=== PATIENT | female | born 1995 | race Caucasian/White ===

== ENCOUNTER 2019-09-29 21:44 | Day surgery (SDC) | payer OTHER ==
[2019-09-29] MEDS ORDERED: Glucagon,Human Recombinant 1 MG Vial IVPUSH ONE (21:47)
[2019-09-29] MEDS ORDERED: Ondansetron 4 MG/2 ML SDV ONE (21:51)
[2019-09-29] MEDS ORDERED: Ondansetron 4 MG/2 ML SDV IVPUSH ONE (21:52)
--- NOTE | 2019-09-29 21:52 | EDM.PDOC ---
ED HPI GENERAL MEDICAL PROBLEM - General Stated Complaint: FOOD STUCK IN THROAT Time Seen by Provider: 09/29/19 21:47 Source of Information: Reports: Patient - History of Present Illness INITIAL COMMENTS - FREE TEXT/NARRATIVE: History of present illness: 24-year-old female presenting with choking episode. Was eating steak just prior to arrival when she felt she got a piece of the steak caught. At first she was choking and could not breathe, her boyfriend did the Heimlich maneuver and she was able to get it to move out of the airway but into the esophagus and now is able to breathe but still feels it stuck in the esophagus and is now unable to keep down any saliva. No difficulty breathing now. Reports that this happened to her in the past with a piece of pork, however she was able to pass it on her own. She does report she has had some chronic gastric reflux since she was a child. This started about 15 minutes before coming to the emergency department. Review of systems: As per history of present illness and below otherwise all systems reviewed and negative. Past medical history: As per history of present illness and as reviewed below otherwise noncontributory. Surgical history: As per history of present illness and as reviewed below otherwise noncontributory. Removal of cyst on leg Social history: No reported history of drug or alcohol abuse. No tobacco Family history: As per history of present illness and as reviewed below otherwise noncontributory. Physical exam: GEN: mild distress, difficulty swallowing, no difficulty breathing, otherwise well appearing HEENT: Atraumatic, normocephalic, mucous membranes moist, Neck: supple. Lungs: No respiratory distress. No Airway obstruction Heart: RRR Abdomen: Soft, nondistended. Extremities: Atraumatic. Neurovascularly intact. Neuro: Awake, alert, oriented. Neuro Exam nonfocal. Skin: warm, dry, no lesions Diagnostics: covid- NEG, HCG - NEG Therapeutics: Glucagon, Zofran, nitroglycerin, IV fluids, soda MDM: Impression: Esophageal foreign body, food impaction Plan: [] Definitive disposition and diagnosis as appropriate pending reevaluation and review of above. - Related Data Allergies Allergy/AdvReac Type Severity Reaction Status Date / Time No Known Allergies Allergy Verified 09/29/19 23:18 Home Meds: Home Meds . [No Known Home Meds] 09/29/19 [History] ED ROS GENERAL - Review of Systems Review Of Systems: See Below (See HPI) ED EXAM, GENERAL - Physical Exam Exam: See Below (See HPI) Course - Vital Signs Text/Narrative:: Esophageal food bolus/food impaction. Attempted soda and up and down jumping. Unsuccessful. Will attempt glucagon and Zofran. Last Recorded V/S: Last Vital Signs Temp 98.2 F 09/29/19 22:25 Pulse 78 09/30/19 00:45 Resp 18 09/29/19 22:25 BP 118/75 09/30/19 00:45 Pulse Ox 98 09/29/19 22:25 - Orders/Labs/Meds Orders: Active Orders 24 hr Category Date Time Status Patient Status [ADT] Routine ADT 09/30/19 01:16 Active Labs: Laboratory Tests 09/29/19 09/29/19 Range/Units 22:02 22:05 HCG, Qual NEGATIVE (NEG) COVID-19 (ROLANDO) NEGATIVE (NEGATIVE) Meds: Medications Discontinued Medications Generic Name Dose Route Start Last Admin Trade Name Ashish PRN Reason Stop Dose Admin Fentanyl Confirm 09/30/19 01:37 Sublimaze Administered 09/30/19 01:38 Dose 100 mcg .ROUTE .STK-MED ONE Glucagon 1 mg 09/29/19 21:47 09/29/19 21:58 Glucagen IVPUSH 09/29/19 21:48 1 mg ONETIME ONE Administration Sodium Chloride 1,000 mls @ 999 mls/hr 09/30/19 00:04 09/30/19 00:13 Normal Saline IV 09/30/19 01:04 999 mls/hr .Bolus ONE Administration Midazolam HCl Confirm 09/30/19 01:37 Versed 1 Mg/Ml Administered 09/30/19 01:38 Dose 2 mg .ROUTE .STK-MED ONE Nitroglycerin 0.4 mg 09/30/19 00:04 09/30/19 00:13 Nitrostat SL 09/30/19 00:05 0.4 mg ONETIME ONE Administration Nitroglycerin Confirm 09/30/19 00:07 Nitrostat Administered 09/30/19 00:08 Dose 0.4 mg .ROUTE .STK-MED ONE Ondansetron HCl 4 mg 09/29/19 21:52 09/29/19 21:58 Zofran IVPUSH 09/29/19 21:53 4 mg ONETIME ONE Administration Ondansetron HCl Confirm 09/29/19 21:51 Zofran Administered 09/29/19 21:52 Dose 4 mg .ROUTE .STK-MED ONE Propofol Confirm 09/30/19 01:37 Diprivan 20 Ml Administered 09/30/19 01:38 Dose 200 mg .ROUTE .STK-MED ONE - Re-Assessments/Exams Free Text/Narrative Re-Assessment/Exam: 09/29/19 22:13 Assessed the patient. She is feeling slightly better, but does feel that the food bolus is still lodged in the esophagus. She has had less spitting up sputum than previous of only. She has received the glucagon. We will continue to monitor. 09/30/19 00:05 Patient still feels that the food is stuck, however feels that it is further down in the esophagus that when she arrived. Will attempt nitroglycerin and additional cola and jumping on heels. 09/30/19 00:21 Still unable to pass the food bolus impaction. Will discuss with surgery on- call. 09/30/19 00:[address] Valderrama, (surgeon) who is uncertain of OR status. Will discuss with Vivian, assistant laboratory director. 09/30/19 00:52 Discussed with anesthesia, first Manuel CRNA, who reports that she the patient needs general anesthesia which cannot be performed in the only OR that is currently functional, which is the endoscopy suite. I discussed this also directly with Dr. Alexandre, the anesthesiologist talent acquisition manager who does report that there is risk of aspiration and therefore general anesthesia with intubation is recommended for esophageal foreign bodies and as there is no OR available which can perform general anesthesia with intubation. 09/30/19 01:18 Nursing soaking pits supervisor was able to reach assistant laboratory director, who confirmed that equipment can be moved to alternate OR that does have GETA capabilities. DR Valderrama *surgeon, present at bedside and agrees to proceed. Anesthesia called/will come in, OR team called in too. Departure - Departure Time of Disposition: 01:15 Disposition: Still A Patient 30 Clinical Impression: Esophageal foreign body Qualifiers: Encounter type: initial encounter Qualified Code(s): T18.108A - Unspecified foreign body in esophagus causing other injury, initial encounter Food impaction of esophagus Qualifiers: Encounter type: initial encounter Qualified Code(s): T18.128A - Food in esophagus causing other injury, initial encounter - Discharge Information Sepsis Event Note (ED) - Focused Exam Vital Signs: Vital Signs Temp Pulse Resp BP BP Pulse Ox 09/30/19 00:45 78 118/75 09/30/19 00:13 128/40 L 09/29/19 22:25 98.2 F 90 18 125/92 H 98 - My Orders Last 24 Hours: My Active Orders 09/30/19 01:16 Patient Status [ADT] Routine - Assessment/Plan Last 24 Hours: My Active Orders 09/30/19 01:16 Patient Status [ADT] Routine
[2019-09-30] MEDS ORDERED: Nitroglycerin 0.4 MG Tab.SL SL ONE (00:04)
[2019-09-30] MEDS ORDERED: Sodium Chloride 0.9% 1,000 ML IV ONE (00:04)
[2019-09-30] MEDS ORDERED: Nitroglycerin 0.4 MG Tab.SL ONE (00:07)
[2019-09-30] MEDS ORDERED: Propofol 200 MG/20 ML SDV ONE (01:37)
[2019-09-30] MEDS ORDERED: Midazolam 1 MG/ML 2 ML SDV ONE (01:37)
[2019-09-30] MEDS ORDERED: fentaNYL 100 MCG/2 ML SDV ONE (01:37)
[2019-09-30] MEDS ORDERED: Glycopyrrolate 0.2 MG/ML SDV ONE (01:40)
[2019-09-30] MEDS ORDERED: Ondansetron 4 MG/2 ML SDV ONE (01:40)
[2019-09-30] MEDS ORDERED: Lidocaine 2% 5 ML SDV ONE (01:40)
[2019-09-30] MEDS ORDERED: Succinylcholine/Sod PF 100 MG/5 ML SYRINGE IV ONE (01:40)
--- NOTE | 2019-09-30 01:41 | PCM.PREANE ---
Preanesthetic Assessment - Anesthesia/Transfusion/Family Hx Anesthesia History: Prior Anesthesia Without Reaction Family History of Anesthesia Reaction: No - Physical Assessment NPO Status Date: 09/29/19 NPO Status Time: 21:30 Vital Signs: Last Vital Signs Temp 36.8 C 09/29/19 22:25 Pulse 78 09/30/19 00:45 Resp 18 09/29/19 22:25 BP 118/75 09/30/19 00:45 Pulse Ox 98 09/29/19 22:25 Height: 1.73 m Weight: 56.699 kg ASA Class: 1E - Lab Values: Laboratory Last Values HCG, Qual NEGATIVE (NEG) 09/29/19 22:02 COVID-19 (ROLANDO) NEGATIVE (NEGATIVE) 09/29/19 22:05 - Allergies Allergies/Adverse Reactions: Allergies Allergy/AdvReac Type Severity Reaction Status Date / Time No Known Allergies Allergy Verified 09/29/19 23:18 - Acknowledgements Anesthesia Type Planned: General Anesthesia Pt an Appropriate Candidate for the Planned Anesthesia: Yes Alternatives and Risks of Anesthesia Discussed w Pt/Guardian: Yes Pt/Guardian Understands and Agrees with Anesthesia Plan: Yes PreAnesthesia Questionnaire - Past Health History Medical/Surgical History: Denies Medical/Surgical History - SUBSTANCE USE Smoking Status *Q: Never Smoker Recreational Drug Use History: No - HOME MEDS Home Medications: Home Meds . [No Known Home Meds] 09/29/19 [History] - CURRENT (IN HOUSE) MEDS Current Meds: Current Medications Discontinued Medications Fentanyl (Sublimaze) Confirm Administered Dose 100 mcg .ROUTE .STK-MED ONE Stop: 09/30/19 01:38 Glucagon (Glucagen) 1 mg IVPUSH ONETIME ONE Stop: 09/29/19 21:48 Last Admin: 09/29/19 21:58 Dose: 1 mg Documented by: Sodium Chloride (Normal Saline) 1,000 mls @ 999 mls/hr IV .Bolus ONE Stop: 09/30/19 01:04 Last Admin: 09/30/19 00:13 Dose: 999 mls/hr Documented by: Midazolam HCl (Versed 1 Mg/Ml) Confirm Administered Dose 2 mg .ROUTE .STK-MED ONE Stop: 09/30/19 01:38 Nitroglycerin (Nitrostat) 0.4 mg SL ONETIME ONE Stop: 09/30/19 00:05 Last Admin: 09/30/19 00:13 Dose: 0.4 mg Documented by: Nitroglycerin (Nitrostat) Confirm Administered Dose 0.4 mg .ROUTE .STK-MED ONE Stop: 09/30/19 00:08 Ondansetron HCl (Zofran) 4 mg IVPUSH ONETIME ONE Stop: 09/29/19 21:53 Last Admin: 09/29/19 21:58 Dose: 4 mg Documented by: Ondansetron HCl (Zofran) Confirm Administered Dose 4 mg .ROUTE .STK-MED ONE Stop: 09/29/19 21:52 Propofol (Diprivan 20 Ml) Confirm Administered Dose 200 mg .ROUTE .STK-MED ONE Stop: 09/30/19 01:38
[2019-09-30] MEDS ORDERED: Dexamethasone 4 MG/ML 5 ML MDV ONE (01:55)
--- NOTE | 2019-09-30 03:00 | CONS ---
DATE OF CONSULTATION: 09/30/2019 DATE OF : 1995 PRIMARY CARE PHYSICIAN: None PCP HISTORY OF PRESENT ILLNESS: The patient is a pleasant 24-year-old female who had supper this evening at 9 o'clock. She was eating steak when she started chocking. Her did the Heimlich maneuver and she was able to breathe, but then she felt the food got lodged in her esophagus. She was unable to swallow or keep her saliva down, so she kept spit up. The ER physician tried multiple maneuvers trying to having her swallow, gave glucagon, and nothing seems to work. The patient states she was having some slight discomfort at the top of her throat. She says that it feels like the piece of meat is stuck just at the beginning of her esophagus. The patient states she has a history of swallowing issues. Couple of years ago, she had a piece of pork stuck, but she was able to get this out of her esophagus down herself. She says occasionally if she eats food like breads and meat, she will feel like it gets stuck. She will have to drink a big glass of water to get it down. She says this is not all the time, just occasionally she will have this happen. She will be able to eat meats and breads at other times with no issues. The patient states she does have some issues with reflux. She said when she was 1 or 1 years old, she had an upper endoscopy because of reflux. She said there was no other one showing she had reflux. The patient really denies any other medical issues or problems. PAST MEDICAL HISTORY: The patient denies any. CURRENT HOME MEDICATIONS: The patient denies any. ALLERGIES: The patient denies any. SOCIAL HISTORY: The patient denies any tobacco use. Denies any illicit drug use. Occasional, social alcohol use. FAMILY HISTORY: A grandmother with breast cancer. REVIEW OF SYSTEMS: 10-point review of systems was done. It was negative except for what is in HPI. PHYSICAL EXAMINATION: GENERAL: The patient is sitting comfortably in ER room. She is alert and oriented. No acute distress. VITAL SIGNS: Temperature is 98.2, pulse is 78, blood pressure is 124/92, saturating 98% on room air. HEENT: Head is normocephalic and atraumatic. Mouth, mucous membranes are moist. No lesions seen. She still has tonsils. I do not see any obvious signs of food bolus. LUNGS: Clear to auscultation bilaterally. No rhonchi heard. HEART: Regular rate and rhythm. No murmur appreciated. ABDOMEN: Soft, nontender, nondistended. EXTREMITIES: No edema. NEUROLOGIC: No gross motor neurologic deficit noted. Covid and tests were negative. ASSESSMENT AND PLAN: This is a pleasant 24-year-old female who likely has food bolus in her esophagus. She has had issues with swallowing food stuff in the past. I went over that to resolve this, we would do an upper endoscopy, EGD. The goal would be to remove food bolus either by pushing down into her stomach or pulling it out. I went over with the patient that she will need anesthesia and they will likely use the endotracheal tube to protect her airway. The patient understands. We went over the risks as well as alternatives. Risks include, but are not limited to bleeding, infection, perforation, not able to remove the bolus of food. Also, I went over that she should follow up with her GI. She might need dilation or other treatment to help with this swallowing difficulty she has been having. The patient understands. All the questions were answered. The patient wishes to be full code for procedure. AMY / DEVIN /[id number] MTDD
--- NOTE | 2019-09-30 03:36 | PN ---
While awaiting in the ER for the upper endoscopy, the patient felt the food bolus moved through her esophagus and she said she felt a thump in her stomach. She had immediate relief of all her discomfort. The patient states she is feeling good now. She has also been drinking quite a bit of water and has gone done with no issues. She is able to control her saliva. She feels back to normal. Because of this, we will cancel the upper endoscopy. We are unable to give to do an upper GI swallow as it is unable at this facility, but given that the patient is having no pain or discomfort and has been swallowing liquids for about half hour here with no issues, we will send her home after little more observation time with liquid diet. I did go over with the patient that she needs to be careful and make sure she chews her food properly. Also with her long history of swallowing issues, she should follow up with GI specialty because she might need a dilation in the future. All the patient's questions were answered. She will be discharged by the ER. AMY BELTRAN /[id number] MTDTheresa
== END 2019-09-30 ==
LOC: MW.ED 21:44 → MW.SDS 09-30 01:14
PROVIDERS: ATTEND Surgery
DX: T18.128A Food in esophagus causing other injury, initial encounter (principal); K21.9 Gastro-esophageal reflux disease without esophagitis; Z20.828 Contact with and (suspected) exposure to other viral communicable diseases
CPT/HCPCS: 36415; 84703; 87635; 96374; 96375; 99283; A9270; J0330; J1100; J1610; J2001; J2405; J3490; J7030; 99284; J2250; J2704; J3010; U0002